=== PATIENT | female | born 1995 | race Hispanic/Latino ===

== ENCOUNTER 2017-02-27 22:49 | Emergency (ER) | payer OTHER ==
[2017-02-27 22:49] VITALS: BMI 23.0
[2017-02-27 22:57] VITALS: BP 127/86; PULSE 60; TEMP 98.4; O2SAT 100
[2017-02-27 23:29] LABS: RBC URINE 21 /hpf (0-3); TRANSITIONAL EPITHIAL 5 /hpf (0-3); URINE BACTERIA MANY (<OCC); URINE BILIRUBIN NEGATIVE (NEGATIVE); URINE COLOR Yellow (YELLOW); URINE GLUCOSE (UA) NORMAL (Normal); URINE KETONE TRACE mg/dL (NEGATIVE); URINE LEUKOCYTE ESTERASE 3+ Leu/uL (Negative); URINE PROTEIN 1+ mg/dL (NEGATIVE); URINE UROBILINOGEN NORMAL mg/dL (0.2-1.0); WBC URINE 241 /hpf (0-5)
[2017-02-27 23:30] LABS: URINE BLOOD 2+ (NEGATIVE)
--- NOTE | 2017-02-28 00:02 | C.PDOC ---
History Of Present Illness 22 year old patient presents to the ED complaining of urinary hesitancy, dysuria and hematuria since yesterday. Patient has a history of UTIs. Patient denies any fever, chills, nausea, vomiting, abdominal pain, or back pain. Time Seen by Provider: 02/27/17 23:07 Chief Complaint (Nursing): Female Genitourinary History Per: Patient History/Exam Limitations: no limitations Onset/Duration Of Symptoms: Days (yesterday) Current Symptoms Are (Timing): Still Present Severity: Mild Pain Scale Rating Of: 3 Quality Of Discomfort: Unable To Describe Associated Symptoms: Urinary Symptoms Alleviating Factors: None Recent travel outside of the [place]: No Additional History Per: Patient Abnormal Vaginal Bleeding: No Past Medical History Reviewed: Historical Data, Nursing Documentation, Vital Signs Vital Signs: Last Vital Signs Temp 98.4 F 02/27/17 22:55 Pulse 60 02/27/17 22:55 Resp 20 02/28/17 00:07 BP 127/86 02/27/17 22:55 Pulse Ox 100 02/28/17 00:02 - Medical History PMH: Anxiety, Asthma, Migraine Family History: States: Unknown Family Hx - Social History Hx Tobacco Use: No Hx Alcohol Use: Yes Hx Substance Use: No - Immunization History Hx Tetanus Toxoid Vaccination: No Hx Influenza Vaccination: No Hx Pneumococcal Vaccination: No Review Of Systems Except As Marked, All Systems Reviewed And Found Negative. Constitutional: Negative for: Fever, Chills Gastrointestinal: Negative for: Nausea, Vomiting, Abdominal Pain Genitourinary: Positive for: Dysuria, Hematuria, Other (urinary hesitancy) Musculoskeletal: Negative for: Back Pain Physical Exam - Physical Exam Appears: Non-toxic, No Acute Distress Skin: Warm, Dry Head: Atraumatic, Normacephalic Eye(s): bilateral: EOMI Oral Mucosa: Moist Neck: Normal ROM, Supple Chest: Symmetrical Cardiovascular: Rhythm Regular Respiratory: Normal Breath Sounds, No Rales, No Rhonchi, No Wheezing Gastrointestinal/Abdominal: Soft, No Tenderness, No Guarding, No Rebound Back: Normal Inspection, No CVA Tenderness Extremity: Normal ROM Neurological/Psych: Oriented x3 Gait: Steady ED Course And Treatment O2 Sat by Pulse Oximetry: 100 (room air) Pulse Ox Interpretation: Normal Progress Note: Plan: Macrobid, Pyridium, Urine culture, Urinalysis. Upon reassessment, patient is resting comfortably, abdomen remains soft, and patient is tolerating PO. Patient feels comfortable going home. Patient will be discharged home. Follow up with PMD. Return if symptoms worsen. Disposition Counseled Patient/Family Regarding: Diagnosis, Need For Followup - Disposition Disposition: HOME/ ROUTINE Disposition Time: 23:59 Condition: STABLE Additional Instructions: PLease take meds as directed Follow up with PMD Return to ER if worse Prescriptions: Nitrofurantoin Macrocrystals [Macrobid] 1 cap PO BID #14 cap Phenazopyridine HCl [Pyridium] 100 mg PO TID #6 tab Instructions: Urinary Tract Infection in Women (ED) - Clinical Impression Clinical Impression: Urinary tract infection - PA / DIRECTOR ELECTRONICS / Resident Statement MD/DO has reviewed & agrees with the documentation as recorded. - Scribe Statement The provider has reviewed the documentation as recorded by the Scribe Monica Burton All medical record entries made by the Scribe were at my direction and personally dictated by me. I have reviewed the chart and agree that the record accurately reflects my personal performance of the history, physical exam, medical decision making, and the department course for this patient. I have also personally directed, reviewed, and agree with the discharge instructions and disposition.
[2017-02-28 00:08] VITALS: RESP 20
== END 2017-02-28 00:07 | disposition home or self-care (01) ==
LOC: C.ER 22:49
DX: N39.0 Urinary tract infection, site not specified (principal); R31.9 Hematuria, unspecified

== ENCOUNTER 2017-08-17 13:38 | Emergency (ER) | payer OTHER ==
[2017-08-17 13:38] VITALS: BMI 23.0
[2017-08-17 13:43] VITALS: RESP 18
--- NOTE | 2017-08-17 14:18 | C.PDOC ---
History Of Present Illness 22 y/o female c/o urinary urgency frequency and dysuria for about 4-5 days, not better after taking otc pyridium. No nausea,vomiting, fever, chills or back pain. pt reports frequent uti, no hx dm. pt has plans to go for resource management specialist visit in near future. Time Seen by Provider: 08/17/17 13:46 Chief Complaint (Nursing): Female Genitourinary History Per: Patient Onset/Duration Of Symptoms: Days (5) Current Symptoms Are (Timing): Still Present Severity: Mild Quality Of Discomfort: "Pain" Associated Symptoms: denies: Fever, Chills, Nausea, Vomiting, Back Pain Recent travel outside of the [place]: No Additional History Per: Patient Past Medical History Reviewed: Historical Data, Nursing Documentation, Vital Signs Vital Signs: Last Vital Signs Temp 98.5 F 08/17/17 15:12 Pulse 74 08/17/17 15:12 Resp 18 08/17/17 15:12 BP 116/70 08/17/17 15:12 Pulse Ox 96 08/17/17 21:57 - Medical History PMH: Anxiety, Asthma, Migraine Denies: Chronic Kidney Disease Family History: States: Unknown Family Hx - Social History Hx Tobacco Use: No Hx Alcohol Use: No Hx Substance Use: No - Immunization History Hx Tetanus Toxoid Vaccination: No Hx Influenza Vaccination: No Hx Pneumococcal Vaccination: No Review Of Systems Constitutional: Negative for: Fever, Chills Gastrointestinal: Negative for: Nausea, Vomiting, Abdominal Pain Genitourinary: Positive for: Dysuria, Frequency, Other (URinary urgency) Musculoskeletal: Negative for: Back Pain Skin: Negative for: Rash Neurological: Negative for: Weakness, Numbness Physical Exam - Physical Exam Appears: Non-toxic, No Acute Distress Skin: Warm, Dry Head: Atraumatic, Normacephalic Oral Mucosa: Moist Chest: Symmetrical, No Tenderness Cardiovascular: Rhythm Regular, No Murmur Respiratory: Normal Breath Sounds, No Rales, No Rhonchi, No Wheezing Gastrointestinal/Abdominal: Bowel Sounds, Soft, No Tenderness, No Guarding, No Rebound Back: No CVA Tenderness Neurological/Psych: Oriented x3, Normal Speech, Normal Cognition ED Course And Treatment O2 Sat by Pulse Oximetry: 96 (RA) Pulse Ox Interpretation: Normal Medical Decision Making Medical Decision Making: ua upreg and uc sent Disposition Counseled Patient/Family Regarding: Studies Performed, Diagnosis, Need For Followup, Rx Given - Disposition Referrals: [facility] [Outside] Disposition: HOME/ ROUTINE Disposition Time: 15:12 Condition: STABLE Additional Instructions: Drink increased fluids- water and craberry juice best. Follow up with manager programming and/or in medical clinic. Complete entire antibiotic prescription. Prescriptions: Ciprofloxacin HCl [Cipro] 500 mg PO BID #10 tablet Instructions: Urinary Tract Infection in Women (ED) Forms: General Discharge Instructions, [facility] (Bhutanese), School Excuse, Work Excuse - Clinical Impression Clinical Impression: Urinary tract infection - Scribe Statement The provider has reviewed the documentation as recorded by the Scribe Ramy bentley All medical record entries made by the Scribe were at my direction and personally dictated by me. I have reviewed the chart and agree that the record accurately reflects my personal performance of the history, physical exam, medical decision making, and the department course for this patient. I have also personally directed, reviewed, and agree with the discharge instructions and disposition.
[2017-08-17 14:35] LABS: RBC URINE 6 /hpf (0-3); URINE BACTERIA MOD (<OCC); URINE BILIRUBIN NEGATIVE (NEGATIVE); URINE BLOOD NEGATIVE (NEGATIVE); URINE COLOR Yellow (YELLOW); URINE GLUCOSE (UA) NORMAL (Normal); URINE KETONE NEGATIVE (NEGATIVE); URINE LEUKOCYTE ESTERASE 3+ Leu/uL (Negative); URINE PROTEIN NEGATIVE (NEGATIVE); URINE UROBILINOGEN NORMAL mg/dL (0.2-1.0); WBC URINE 152 /hpf (0-5)
[2017-08-17 15:12] VITALS: BP 116/70; PULSE 74; TEMP 98.5
[2017-08-17 15:14] VITALS: O2SAT 96
== END 2017-08-17 15:21 | disposition home or self-care (01) ==
LOC: C.ER 13:38
DX: N39.0 Urinary tract infection, site not specified (principal)

== ENCOUNTER 2017-12-25 00:03 | Emergency (ER) | payer OTHER ==
[2017-12-25 00:03] VITALS: BMI 23.0
[2017-12-25 00:36] LABS: SQUAMOUS EPITHIAL 10 /hpf (0-5); URINE BACTERIA MANY (<OCC); URINE BILIRUBIN NEGATIVE (NEGATIVE); URINE BLOOD NEGATIVE (NEGATIVE); URINE CLARITY Hazy (Clear); URINE COLOR Yellow (YELLOW); URINE GLUCOSE (UA) NORMAL (Normal); URINE LEUKOCYTE ESTERASE 2+ Leu/uL (Negative); URINE PROTEIN 1+ mg/dL (NEGATIVE); URINE UROBILINOGEN NORMAL mg/dL (0.2-1.0)
--- NOTE | 2017-12-25 00:46 | C.PDOC ---
History Of Present Illness Pt presents yo ER with c/o of dysuria, urinary hesitancy and frequency x 2 days. Pt has past h/o of UTI and feels the same. Pt denies fever, vomiting, abdominal pain or back pain Time Seen by Provider: 12/25/17 00:29 Chief Complaint (Nursing): Female Genitourinary History Per: Patient History/Exam Limitations: no limitations Severity: Moderate Associated Symptoms: Urinary Symptoms. denies: Fever, Vomiting, Back Pain Past Medical History Vital Signs: Last Vital Signs Temp 97.8 F 12/25/17 00:14 Pulse 72 12/25/17 00:14 Resp 18 12/25/17 00:14 BP 117/83 12/25/17 00:14 Pulse Ox 99 12/25/17 00:45 - Medical History PMH: Anxiety, Asthma, Migraine Denies: Chronic Kidney Disease Family History: States: Unknown Family Hx - Social History Hx Tobacco Use: No Hx Alcohol Use: No Hx Substance Use: No - Immunization History Hx Tetanus Toxoid Vaccination: No Hx Influenza Vaccination: No Hx Pneumococcal Vaccination: No Review Of Systems Constitutional: Negative for: Fever Gastrointestinal: Negative for: Nausea, Vomiting, Abdominal Pain Genitourinary: Positive for: Dysuria, Frequency. Negative for: Incontinence, Hematuria, Vaginal Discharge Musculoskeletal: Negative for: Back Pain Physical Exam - Physical Exam Appears: Well, Non-toxic, No Acute Distress Eye(s): bilateral: Normal Inspection, PERRL, EOMI Gastrointestinal/Abdominal: Normal Exam, Soft, No Tenderness, No Distention Back: Normal Inspection, No CVA Tenderness Neurological/Psych: Oriented x3 ED Course And Treatment - Laboratory Results Urine POC: Negative O2 Sat by Pulse Oximetry: 99 Pulse Ox Interpretation: Normal Progress Note: Pt in no acute distress, UA indicates UTI. Pt will be d/c home with RX for UTI. Return precautions discussed and pt understands and agreed with plan. Urine cx sent Reassessment Condition: Improved Disposition - Disposition Referrals: Kalie Gardner MD [Primary Care Provider] - Disposition: HOME/ ROUTINE Disposition Time: 00:53 Condition: STABLE Additional Instructions: Increase fluids Take all meds prescribed Return to ER if worse Prescriptions: Nitrofurantoin Macrocrystals [Macrobid] 1 cap PO BID #14 cap Phenazopyridine HCl [Pyridium] 100 mg PO TID #4 tab Instructions: Urinary Tract Infections in Adults Forms: [facility] (Hungarian) - Clinical Impression Clinical Impression: Urinary tract infection
[2017-12-25 01:24] VITALS: BP 120/71; PULSE 81; RESP 20; TEMP 98
[2017-12-25 04:05] VITALS: O2SAT 99
== END 2017-12-25 01:23 | disposition home or self-care (01) ==
LOC: SUPCPDRO 00:03 → C.ER 00:03
DX: N39.0 Urinary tract infection, site not specified (principal)

== ENCOUNTER 2018-01-26 16:33 | Emergency (ER) | payer OTHER ==
[2018-01-26 16:51] VITALS: BMI 27.4
[2018-01-26 16:54] VITALS: TEMP 98
[2018-01-26 17:50] LABS: SQUAMOUS EPITHIAL 6 /hpf (0-5); URINE BACTERIA RARE (<OCC); URINE BILIRUBIN NEGATIVE (NEGATIVE); URINE BLOOD NEGATIVE (NEGATIVE); URINE CLARITY Hazy (Clear); URINE COLOR Amber (YELLOW); URINE GLUCOSE (UA) NORMAL (Normal); URINE LEUKOCYTE ESTERASE 1+ Leu/uL (Negative); URINE PROTEIN 1+ mg/dL (NEGATIVE)
--- NOTE | 2018-01-26 18:58 | C.PDOC ---
History Of Present Illness 22 year old female presents to the ED for evaluation of urinary frequency and urgency which began last night. Patient has history of frequency UTIs and received her most recent treatment was one month ago. Patient states she was instructed to take 7-day course of Macrobid, but patient states she only took it for 5 days. Patient states she took one tablet of leftover Macrobid and Pyridium with some relief last night.. She presents to the ED for further evaluation and denies fever, chills, abdominal pain. Patient admits to recent sexual activity. Time Seen by Provider: 01/26/18 17:21 Chief Complaint (Nursing): Female Genitourinary History Per: Patient History/Exam Limitations: no limitations Onset/Duration Of Symptoms: Hrs Current Symptoms Are (Timing): Still Present Associated Symptoms: Urinary Symptoms (urinary frequency and urgency ). denies : Fever, Chills Additional History Per: Patient Past Medical History Reviewed: Historical Data, Nursing Documentation, Vital Signs Vital Signs: Last Vital Signs Temp 98 F 01/26/18 16:50 Pulse 71 01/26/18 19:17 Resp 16 01/26/18 19:17 BP 101/66 01/26/18 19:17 Pulse Ox 100 01/27/18 15:55 - Medical History PMH: Anxiety, Asthma, Migraine Denies: Chronic Kidney Disease Surgical History: No Surg Hx Family History: States: Unknown Family Hx - Social History Hx Tobacco Use: No Hx Alcohol Use: No Hx Substance Use: No - Immunization History Hx Tetanus Toxoid Vaccination: No Hx Influenza Vaccination: No Hx Pneumococcal Vaccination: No Review Of Systems Constitutional: Negative for: Fever, Chills Gastrointestinal: Negative for: Vomiting, Abdominal Pain Genitourinary: Positive for: Frequency, Other (urgency ). Negative for: Pelvic Pain Musculoskeletal: Negative for: Back Pain Physical Exam - Physical Exam Appears: Non-toxic, No Acute Distress Skin: Normal Color, Warm, Dry Head: Atraumatic, Normacephalic Eye(s): bilateral: Normal Inspection Oral Mucosa: Moist Neck: Supple Chest: Symmetrical, No Deformity, No Tenderness Cardiovascular: Rhythm Regular, No Murmur Respiratory: Normal Breath Sounds, No Rales, No Rhonchi, No Wheezing Gastrointestinal/Abdominal: Soft, No Tenderness, No Guarding, No Rebound Back: No CVA Tenderness Extremity: Normal ROM, Capillary Refill (less than 2 seconds ) Neurological/Psych: Oriented x3, Normal Speech, Normal Cognition ED Course And Treatment O2 Sat by Pulse Oximetry: 100 (on RA) Pulse Ox Interpretation: Normal Medical Decision Making Medical Decision Making: pt with frequent uti; seen 1 month ago, txed with macrobid. culture from reviewed, shows ecoli and group beta strep. ecoli sensitive to macrobid; gbs sensitive to pcn, will d/c with macrobid and amoxicillin. pt advised she needs to see gynecology and urology for frequent utis, and urged to urinate before and after intercourse. pt made aware of increasing antibiotic resistance seen in cultures and the importance of gu and chief librarian extension department follow up. Disposition Counseled Patient/Family Regarding: Studies Performed, Diagnosis, Need For Followup, Rx Given - Disposition Referrals: Noah Baez MD [Staff Provider] - Kaelyn Ibarra MD [Staff Provider] - Disposition: HOME/ ROUTINE Disposition Time: 19:06 Condition: GOOD Additional Instructions: Please drink increased water and cranberry juices. Take both antibiotics to completion. Please follow up with Dr Baez (urologist) or urologist of your own choice, and Dr Ibarra (chief librarian extension department) or chief librarian extension department of your own choice. Urinate before and after intercourse. Return to ER for any worse symptoms, fever, vomiting, back pain. . Tylenol or Motrin for pain if needed. Prescriptions: Amoxicillin 875 mg PO BID #20 tablet Nitrofurantoin Macrocrystals [Macrobid] 100 mg PO BID #14 cap Instructions: Urinary Tract Infection, Adult (DC), Acute Cystitis (DC) Forms: [facility] (Slovak), General Discharge Instructions - Clinical Impression Clinical Impression: Urinary tract infection - PA / EMAIL MARKETING INTERN / Resident Statement MD/DO has reviewed & agrees with the documentation as recorded. - Scribe Statement The provider has reviewed the documentation as recorded by the Scribe All medical record entries made by the Scribe were at my direction and personally dictated by me. I have reviewed the chart and agree that the record accurately reflects my personal performance of the history, physical exam, medical decision making, and the department course for this patient. I have also personally directed, reviewed, and agree with the discharge instructions and disposition.
[2018-01-26 19:18] VITALS: BP 101/66; PULSE 71; RESP 16
[2018-01-27 15:54] VITALS: O2SAT 100
== END 2018-01-26 19:18 | disposition home or self-care (01) ==
LOC: C.ER 16:33
DX: N39.0 Urinary tract infection, site not specified (principal)

== ENCOUNTER 2018-05-08 13:26 | Emergency (ER) | payer OTHER ==
[2018-05-08 13:26] VITALS: BMI 27.4
[2018-05-08] MEDS ORDERED: Sodium Chloride 0.9% 1,000 ML IV ONE (14:47)
[2018-05-08 15:22] LABS: BASO # 0.1 K/uL (0.0-0.2); BASO % 1.2 % (0.0-2.0); EOS # 0.1 K/uL (0.0-0.7); HEMOGLOBIN 12.4 g/dL (11.0-16.0); LYMPH # 2.3 K/uL (1.0-4.3); LYMPH % 21.5 % (20.0-40.0); MEAN CELL VOLUME 90.1 fL (81.0-99.0); MEAN CORPUSCULAR HEMOGLOBIN 32.1 pg (27.0-31.0); MEAN CORPUSCULAR HGB CONC 35.7 g/dL (33.0-37.0); MEAN PLATELET VOLUME 7.3 fL (7.2-11.7); MONO # 0.9 K/uL (0.0-0.8); MONO % 8.5 % (0.0-10.0); NEUT # 7.4 K/uL (1.8-7.0); NEUT % 67.8 % (50.0-75.0); RBC 3.85 Mil/uL (3.80-5.20); RED CELL DISTRIBUTION WIDTH 12.9 % (11.5-14.5); WHITE BLOOD COUNT 10.9 K/uL (4.8-10.8)
[2018-05-08 15:27] LABS: SQUAMOUS EPITHIAL 1 /hpf (0-5); URINE BILIRUBIN NEGATIVE (NEGATIVE); URINE BLOOD 3+ (NEGATIVE); URINE CLARITY Clear (Clear); URINE COLOR Yellow (YELLOW); URINE GLUCOSE (UA) NORMAL (Normal); URINE LEUKOCYTE ESTERASE 1+ Leu/uL (Negative); URINE PROTEIN NEGATIVE (NEGATIVE); URINE UROBILINOGEN NORMAL mg/dL (0.2-1.0)
[2018-05-08 15:45] LABS: ALB/GLOB RATIO 1.6 (1.0-2.1); ALBUMIN 4.6 g/dL (3.5-5.0); ALT/SGPT 29 U/L (9-52); AST/SGOT 22 U/L (14-36); BLOOD UREA NITROGEN 11 mg/dL (7-17); CALCIUM 9.5 mg/dl (8.6-10.4); GFR AFRICAN-AMERICAN > 60; GFR NON-AFRICAN AMERICAN > 60
--- NOTE | 2018-05-08 17:15 | US ---
Date of service: 05/08/2018 PROCEDURE: OB Pelvic Ultrasound HISTORY: vag bleeding LMP: 03/16/2018 Serum beta HCG 2903 COMPARISON: None available. FINDINGS: UTERUS: Gestational sac: Single intrauterine gestation. Cystic structure measuring, out of range Uterus measures 7.1 x 4.7 x 3.7 cm. Normal in size and appearance. CERVIX: Measures 3.1 cm. Long and closed. No cervical abnormality seen. RIGHT OVARY: Measures 3.7 x 2.9 x 2.3 cm. No mass lesion. Normal flow. LEFT OVARY: Measures 2.8 x 1.5 x 2.2 cm. No solid mass. Normal flow. FREE FLUID: None. OTHER FINDINGS: None. IMPRESSION: Small intrauterine cystic structure which likely represents a gestational sac, but is currently out of range. Findings may represent early normal/ abnormal with ectopic not excluded. Close clinical follow-up with serial pelvic sonography and serum beta HCG levels is recommended.
[2018-05-08 18:08] VITALS: BP 124/77; PULSE 96; RESP 18; TEMP 99; O2SAT 100
--- NOTE | 2018-05-08 18:28 | C.PDOC ---
History Of Present Illness 23 y/oF presents to the ED for evaluation of light vaginal spotting which began 3 days ago. Patient was seen at the clinic during the onset of her symptoms and was told her symptoms are not remarkable. Over the past 48 hours, patient reports her spotting has increased and her bleeding became heavier today. Patient is also c/o a cramping abdominla pain. She does not take any medications and denies past surgical history or history of allergies. Patient takes vitamins. She denies alcohol/drug use. Patient's LMP was 03/16/18. . Time Seen by Provider: 05/08/18 14:07 Chief Complaint (Nursing): Female Genitourinary History Per: Patient History/Exam Limitations: no limitations Onset/Duration Of Symptoms: Days (3) Current Symptoms Are (Timing): Still Present Quality Of Discomfort: Cramping Additional History Per: Patient Abnormal Vaginal Bleeding: Yes Last Menstral Period: 03/16/18 Past Medical History Reviewed: Historical Data, Nursing Documentation, Vital Signs Vital Signs: Last Vital Signs Temp 99.0 F 05/08/18 18:07 Pulse 96 H 05/08/18 18:07 Resp 18 05/08/18 18:07 BP 124/77 05/08/18 18:07 Pulse Ox 100 05/08/18 21:19 - Medical History PMH: Anxiety, Asthma, Migraine Denies: Chronic Kidney Disease Surgical History: No Surg Hx Family History: States: Unknown Family Hx - Social History Hx Tobacco Use: No Hx Alcohol Use: No Hx Substance Use: No - Immunization History Hx Tetanus Toxoid Vaccination: No Hx Influenza Vaccination: No Hx Pneumococcal Vaccination: No Review Of Systems Constitutional: Negative for: Fever, Chills, Sweats Eyes: Negative for: Pain, Vision Change, Conjunctivae Inflammation ENT: Negative for: Ear Pain, Ear Discharge, Nose Pain, Nose Discharge Cardiovascular: Negative for: Chest Pain, Palpitations, Orthopnea, Paroxysmal Noc. Dyspnea Respiratory: Negative for: Cough, Shortness of Breath, Hemoptysis, SOB with Excertion, Pleuritic Pain Gastrointestinal: Positive for: Nausea, Abdominal Pain. Negative for: Vomiting , Constipation, Melena Genitourinary: Positive for: Vaginal Bleeding. Negative for: Dysuria, Frequency , Incontinence Musculoskeletal: Negative for: Neck Pain, Shoulder Pain, Arm Pain Skin: Negative for: Rash Neurological: Negative for: Weakness, Numbness, Incoordination Physical Exam - Physical Exam Appears: Non-toxic, No Acute Distress Skin: Normal Color, Warm, Dry Head: Atraumatic, Normacephalic Eye(s): bilateral: Normal Inspection, PERRL, EOMI Ear(s): Bilateral: Normal Oral Mucosa: Moist Tongue: Normal Appearing Lips: Normal Appearing Teeth: Normal Dentition Gingiva: Normal Appearing Throat: Normal Neck: Normal, Supple Chest: Symmetrical, No Deformity, No Tenderness Cardiovascular: Rhythm Regular Respiratory: Normal Breath Sounds, No Rales, No Rhonchi, No Wheezing Gastrointestinal/Abdominal: Soft, No Tenderness, No Guarding, No Rebound Back: Normal Inspection Pelvic: Other (deferred) Extremity: Normal ROM, Capillary Refill (less than 2 seconds ) Extremity: Bilateral: No Pedal Edema, Normal Color And Temperature, Normal ROM Neurological/Psych: Oriented x3, Normal Speech, Normal Cognition ED Course And Treatment - Laboratory Results Result Diagrams: 05/08/18 15:16 05/08/18 15:16 O2 Sat by Pulse Oximetry: 100 (on RA) Pulse Ox Interpretation: Normal - CT Scan/US ultrasound Other Rad Studies (CT/US): Read By Radiologist, Radiology Report Reviewed CT/US Interpretation: 05/08/2018. PROCEDURE: OB Pelvic Ultrasound. HISTORY: vag bleeding. LMP: 03/16/2018. Serum beta HCG 2903. COMPARISON: None available. FINDINGS: UTERUS: Gestational sac: Single intrauterine gestation. Cystic structure measuring, out of range. Uterus measures 7.1 x 4.7 x 3.7 cm. Normal in size and appearance. CERVIX: Measures 3.1 cm. Long and closed. No cervical abnormality seen. RIGHT OVARY: Measures 3.7 x 2.9 x 2.3 cm. No mass lesion. Normal flow. LEFT OVARY: Measures 2.8 x 1.5 x 2.2 cm. No solid mass. Normal flow. FREE FLUID: None. OTHER FINDINGS: None. IMPRESSION: Small intrauterine cystic structure which likely represents a gestational sac, but is currently out of range. Findings may represent early normal/ abnormal with ectopic not excluded. Close clinical follow-up with serial pelvic sonography and serum beta HCG levels is recommended. Medical Decision Making Medical Decision Making: Progress: Urinalysis, urine , ob ultrasound , type and screen ordered and reviewed. IV Fluids given for hydration. labs results: * white count: 10 * hemoglobin: 12 * CBC negative * urine negative * Beta 29.03 * blood type is A+ ultrasound shows small uterine cyst, could be gestational sac. could be early abnormal or ectopic. pt counseled to return in 48 hours for repeat beta hcg and repeat pelvic us. Disposition Counseled Patient/Family Regarding: Diagnosis, Need For Followup - Disposition Disposition: HOME/ ROUTINE Disposition Time: 19:01 Condition: GOOD Additional Instructions: return in 2 days for repeat beta and ultrasound Forms: [facility] ([place] Citizen) - Clinical Impression Clinical Impression: Abdominal pain, Vaginal bleeding affecting early
== END 2018-05-08 19:05 | disposition home or self-care (01) ==
LOC: C.ER 13:26
DX: O20.9 Hemorrhage in early pregnancy, unspecified (principal); Z3A.00 Weeks of gestation of pregnancy not specified; R10.9 Unspecified abdominal pain
CPT/HCPCS: 76805; 76817; 80053; 81001; 84702; 85025; 86850; 86900; 96360; 99284; J7030

== ENCOUNTER 2018-05-09 20:26 | Emergency (ER) | payer OTHER ==
[2018-05-09 20:27] VITALS: BMI 27.4
[2018-05-09 21:27] LABS: BASO % 0.5 % (0.0-2.0); EOS # 0.2 K/uL (0.0-0.7); EOS % 1.7 % (0.0-4.0); HEMOGLOBIN 11.9 g/dL (11.0-16.0); LYMPH # 2.9 K/uL (1.0-4.3); LYMPH % 27.4 % (20.0-40.0); MEAN CELL VOLUME 90.4 fL (81.0-99.0); MEAN CORPUSCULAR HEMOGLOBIN 31.9 pg (27.0-31.0); MEAN CORPUSCULAR HGB CONC 35.3 g/dL (33.0-37.0); MEAN PLATELET VOLUME 7.8 fL (7.2-11.7); MONO # 0.8 K/uL (0.0-0.8); MONO % 8.1 % (0.0-10.0); NEUT # 6.5 K/uL (1.8-7.0); NEUT % 62.3 % (50.0-75.0); RBC 3.73 Mil/uL (3.80-5.20); RED CELL DISTRIBUTION WIDTH 12.8 % (11.5-14.5); WHITE BLOOD COUNT 10.4 K/uL (4.8-10.8)
--- NOTE | 2018-05-09 21:46 | C.PDOC ---
History Of Present Illness 23yo female, , seen in this ER last night for abdominal discomfort and vaignal bleeding, comes to ER for evaluation of similar complaints. Patient had labs indicating serum HCG of 2900 and an US done yesterday with ? gestational sac, no pole or yolk sac was noted. Patient was sent home with instructions about a threatened . She reports today the pain and bleeding has increased and she has also passed some clots. Otherwise, denies any hematuria, vomiting, and offers no additional medical complaints. Time Seen by Provider: 05/09/18 20:53 Chief Complaint (Nursing): Abdominal Pain History Per: Patient History/Exam Limitations: no limitations Onset/Duration Of Symptoms: Days Current Symptoms Are (Timing): Still Present Location Of Pain/Discomfort: Suprapubic Abnormal Vaginal Bleeding: Yes : 1 Para: 0 Miscarriage: 0 Past Medical History Reviewed: Historical Data, Nursing Documentation, Vital Signs Vital Signs: Last Vital Signs Temp 98.9 F 05/09/18 20:38 Pulse 83 05/09/18 20:38 Resp 16 05/09/18 20:38 BP 114/75 05/09/18 20:38 Pulse Ox 97 05/09/18 23:44 - Medical History PMH: Anxiety, Asthma, Migraine Denies: Chronic Kidney Disease Surgical History: No Surg Hx Family History: States: No Known Family Hx - Social History Hx Tobacco Use: No Hx Alcohol Use: Yes Hx Substance Use: No - Immunization History Hx Tetanus Toxoid Vaccination: No Hx Influenza Vaccination: No Hx Pneumococcal Vaccination: No Review Of Systems Constitutional: Negative for: Fever Gastrointestinal: Positive for: Abdominal Pain (suprapubic). Negative for: Vomiting Genitourinary: Positive for: Vaginal Bleeding. Negative for: Hematuria Physical Exam - Physical Exam Appears: Non-toxic, No Acute Distress Skin: Normal Color, Warm, Dry Head: Normacephalic Eye(s): bilateral: Normal Inspection Oral Mucosa: Moist Neck: Supple Chest: Symmetrical Cardiovascular: Rhythm Regular Respiratory: Normal Breath Sounds Gastrointestinal/Abdominal: Soft, Tenderness (suprapubic), No Guarding, No Rebound Pelvic: Normal External Exam, Vaginal Bleeding (small dark blood in vaginal vault), No Cervical Motion Tenderness, No Cervix Open, No Adnexal Tenderness Extremity: Normal ROM Neurological/Psych: Oriented x3 ED Course And Treatment - Laboratory Results Result Diagrams: 05/09/18 21:23 Lab Interpretation: Abnormal (HCG 1891, decreased from yesterday) O2 Sat by Pulse Oximetry: 97 (RA) Pulse Ox Interpretation: Normal - CT Scan/US Pelvic US Other Rad Studies (CT/US): Read By Radiologist, Radiology Report Reviewed CT/US Interpretation: EXAM: US Pelvis, Transvaginal. CLINICAL HISTORY: 23 years old, female; Signs and symptoms; Other: Vb; Additional info: with vaginal bleeding. TECHNIQUE: Real-time transvaginal pelvic ultrasound ( complete) with image documentation. Transvaginal. imaging was used for better evaluation of the endometrium and adnexa. COMPARISON: US - OB TRANSVAGINAL 2018-05-08 16:23. FINDINGS: Uterus/cervix: No intrauterine gestational sac. Heterogenous endometrial stripe thickness 15 mm. No myometrial mass. Uterus measures 8.2 cm x 4.3 cm x 5 cm. Right ovary: Unremarkable. No mass. Normal blood flow. 3.2 cm x 2.5 cm x 3.2 cm. Left ovary : Unremarkable. No mass. Normal blood flow. 2 x 2 cm x 1.7 cm x 2.6 cm. Free fluid: No free fluid. A gestational sac was present on prior examination but is not seen on current examination. IMPRESSION: 1. Negative for intrauterine gestational sac. 2. Prominent heterogenous endometrial tissues. 3. Negative ovaries. 4. Negative uterus and cervix. Thank you for allowing us to participate in the care of your patient. Dictated and Authenticated by: Jaren Townsend MD. 05/09/2018 11:36 PM Eastern Time ([place] & [place]) Progress Note: CBC, Beta-HCG and US Pelvis ordered. Reevaluation Time: 23:51 Reassessment Condition: Improved Disposition - Disposition Referrals: [facility] [Outside] Disposition: HOME/ ROUTINE Disposition Time: 23:51 Condition: IMPROVED Instructions: Miscarriage (DC) Forms: [employer] (Kiswahili) - Clinical Impression Clinical Impression: Spontaneous - Scribe Statement The provider has reviewed the documentation as recorded by the Merna Geiger Provider Attestation: All medical record entries made by the Ettaibgeronimo were at my direction and personally dictated by me. I have reviewed the chart and agree that the record accurately reflects my personal performance of the history, physical exam, medical decision making, and the department course for this patient. I have also personally directed, reviewed, and agree with the discharge instructions and disposition.
[2018-05-10 00:04] VITALS: BP 113/72; PULSE 74; RESP 18; TEMP 98.4; O2SAT 100
--- NOTE | 2018-05-10 10:12 | US ---
Date of service: 05/09/2018 HISTORY: with vaginal bleeding COMPARISON: 05/08/2018. TECHNIQUE: Transvaginal pelvic ultrasound was performed. FINDINGS: UTERUS: Measures 8.2 x 4.4 x 5.0 cm. Anteverted, normal in size and appearance. No fibroid or other mass lesion seen. ENDOMETRIUM: Measures 15 mm in diameter. The central endometrial echo complex is heterogeneous without vascularity. No evidence of intrauterine gestational sac. CERVIX: No cervical abnormality identified. RIGHT OVARY: Measures 3.2 x 2.5 x 3.2 cm. No solid mass. Normal flow. LEFT OVARY: Measures 2.3 x 1.7 x 2.8 cm. No solid mass. Normal flow. FREE FLUID: No significant free fluid noted. OTHER FINDINGS: None. IMPRESSION: No evidence for intrauterine gestation. Heterogeneous central endometrial echo complex without evidence of retained products of conception. A preliminary report was provided by [employer].
== END 2018-05-10 00:05 | disposition home or self-care (01) ==
LOC: C.ER 20:26
DX: O03.9 Complete or unspecified spontaneous abortion without complication (principal)

== ENCOUNTER 2018-05-12 12:26 | Emergency (ER) | payer OTHER ==
[2018-05-12 12:26] VITALS: BMI 27.4
[2018-05-12 12:47] VITALS: BP 114/78; PULSE 78; RESP 18; TEMP 98.2; O2SAT 100
--- NOTE | 2018-05-12 13:18 | C.PDOC ---
History Of Present Illness 23 year old female presents to the ED for follow up. Patient was seen 2 days ago in the ED for pelvic pain and bleeding and was told she had an . Patient discussed with friend, who told her she needed a D&C. Patient notes mild pain with major improvement from 2 days ago. She denies any bleeding, fever , or vomiting. She also requests work note. Time Seen by Provider: 05/12/18 13:04 Chief Complaint (Nursing): Abdominal Pain History Per: Patient History/Exam Limitations: no limitations Onset/Duration Of Symptoms: Days Current Symptoms Are (Timing): Still Present Reports Recently: Seen In ED (2 days ago) Past Medical History Reviewed: Historical Data, Nursing Documentation, Vital Signs Vital Signs: Last Vital Signs Temp 98.2 F 05/12/18 12:44 Pulse 78 05/12/18 12:44 Resp 18 05/12/18 12:44 BP 114/78 05/12/18 12:44 Pulse Ox 100 05/12/18 16:18 - Medical History PMH: Anxiety, Asthma, Migraine Denies: Chronic Kidney Disease Other Surgeries: Hx of surgeries Family History: States: No Known Family Hx - Social History Hx Tobacco Use: No Hx Alcohol Use: Yes Hx Substance Use: No - Immunization History Hx Tetanus Toxoid Vaccination: No Hx Influenza Vaccination: No Hx Pneumococcal Vaccination: No Review Of Systems Constitutional: Negative for: Fever, Chills Gastrointestinal: Positive for: Abdominal Pain (Mild). Negative for: Nausea, Vomiting Physical Exam - Physical Exam Appears: Non-toxic, No Acute Distress Skin: Warm, Dry Head: Atraumatic, Normacephalic Eye(s): bilateral: Normal Inspection Nose: Normal Oral Mucosa: Moist Neck: Normal ROM, Supple Chest: Symmetrical Cardiovascular: Rhythm Regular, No Murmur Respiratory: Normal Breath Sounds, No Rales, No Rhonchi, No Wheezing Gastrointestinal/Abdominal: Soft, No Tenderness, No Guarding, No Rebound Extremity: Normal ROM Extremity: Bilateral: Atraumatic, Normal Color And Temperature, Normal ROM Neurological/Psych: Oriented x3, Normal Speech Gait: Steady ED Course And Treatment O2 Sat by Pulse Oximetry: 100 (RA) Pulse Ox Interpretation: Normal Medical Decision Making Medical Decision Making: Impression: Spontaneous , work note request Prior records reviewed, patient had US 2 days ago showing spontaneous , no POC. Patient assessed and examined. Patient has no fever, abdomen soft without guarding or rebound or peritoneal signs. Patient given work note. 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 Disposition Counseled Patient/Family Regarding: Diagnosis, Need For Followup - Disposition [facility] Disposition: HOME/ ROUTINE Disposition Time: 13:16 Condition: STABLE Additional Instructions: Take Aleve or Advil for any pain Follow up with your sleep scientist or clinic for further care Instructions: Miscarriage (DC) Forms: [employer] (Bermudian), School Excuse, Work Excuse - POA Present On Arrival: None - Clinical Impression Clinical Impression: Spontaneous , Encounter to obtain excuse from work - PA / [employer] / Resident Statement MD/DO has reviewed & agrees with the documentation as recorded. - Scribe Statement The provider has reviewed the documentation as recorded by the Scribe Peg Hagen All medical record entries made by the Ettaibgeronimo were at my direction and personally dictated by me. I have reviewed the chart and agree that the record accurately reflects my personal performance of the history, physical exam, medical decision making, and the department course for this patient. I have also personally directed, reviewed, and agree with the discharge instructions and disposition.
== END 2018-05-12 13:30 | disposition home or self-care (01) ==
LOC: C.ER 12:26
DX: O03.9 Complete or unspecified spontaneous abortion without complication (principal)

== ENCOUNTER 2018-05-17 21:27 | Emergency (ER) | payer OTHER ==
[2018-05-17 21:27] VITALS: BMI 27.4
[2018-05-17 21:39] VITALS: RESP 18
[2018-05-17] MEDS ORDERED: Sodium Chloride 0.9% 1,000 ML IV ONE (22:06)
--- NOTE | 2018-05-17 22:06 | C.PDOC ---
History Of Present Illness 23 year old female presents to the ED c/o dizziness, SOB and not feeling well that started today. Patient reports she recently had a miscarriage but not sure how far along the was. Patient was seen in the ED on 05/08,05/09 and 05/12. Last betta on 05/09 and prevous H&H was normal. Patient reports she stopped bleeding 2 days ago, bleeding was heavier than her normal period. Patient reports she was bleeding a week and half in total. Patient denies fever , chill, nausea, vomit, diarrhea, vaginal discharge, numbness, weakness. Time Seen by Provider: 05/17/18 21:56 Chief Complaint (Nursing): Dizziness/Lightheaded History Per: Patient History/Exam Limitations: no limitations Onset/Duration Of Symptoms: Hrs Current Symptoms Are (Timing): Still Present Associated Symptoms Preceding Syncopal Episode: No Predromal Symptoms (Sudden Onset) Seizure Or Post-ictal Symptoms: None Fall Associated With With Symptoms: No Recent travel outside of the [place]: No Additional History Per: Patient Past Medical History Reviewed: Historical Data, Nursing Documentation, Vital Signs Vital Signs: Last Vital Signs Temp 98.5 F 05/17/18 21:36 Pulse 66 05/17/18 21:36 Resp 18 05/17/18 21:36 BP 114/75 05/17/18 21:36 Pulse Ox 99 05/17/18 22:44 - Medical History PMH: Anxiety, Asthma, Migraine Denies: Chronic Kidney Disease Surgical History: No Surg Hx Family History: States: Unknown Family Hx - Social History Hx Tobacco Use: No Hx Alcohol Use: Yes Hx Substance Use: No - Immunization History Hx Tetanus Toxoid Vaccination: No Hx Influenza Vaccination: No Hx Pneumococcal Vaccination: No Review Of Systems Constitutional: Positive for: Malaise. Negative for: Fever, Chills Eyes: Negative for: Vision Change Cardiovascular: Negative for: Chest Pain Respiratory: Positive for: Shortness of Breath. Negative for: Cough Gastrointestinal: Negative for: Nausea, Vomiting, Abdominal Pain, Diarrhea Neurological: Positive for: Dizziness. Negative for: Weakness, Numbness, Headache Physical Exam - Physical Exam Appears: Non-toxic, No Acute Distress Skin: Warm, Dry, Pale Head: Atraumatic, Normacephalic Eye(s): bilateral: Normal Inspection, Conjunctiva Pale Oral Mucosa: Moist Neck: Normal ROM, Supple Chest: Symmetrical Cardiovascular: Rhythm Regular Respiratory: Normal Breath Sounds, No Rales, No Rhonchi, No Wheezing Gastrointestinal/Abdominal: Soft, No Tenderness, No Guarding, No Rebound Extremity: Normal ROM, No Tenderness, No Swelling Neurological/Psych: Oriented x3, Normal Speech Gait: Steady ED Course And Treatment - Laboratory Results Result Diagrams: 05/17/18 22:14 05/17/18 22:14 ECG: Interpreted By Me, Viewed By Me ECG Rhythm: Sinus Rhythm ECG Interpretation: Normal Rate From EC (BPM) O2 Sat by Pulse Oximetry: 99 (ON RA) Pulse Ox Interpretation: Normal Progress - Re-Evaluation Re-evaluation Note: 05/17/18 23:21 sp ivf DIZZY RESOLVED. VSS - Data Reviewed Data Reviewed: Lab, EKG, Old records Medical Decision Making Medical Decision Making: Impression: dizziness, not feeling well, SOB s/o miscarriage last week Plan: * Labs * EKG * IV fluids * UA Disposition Counseled Patient/Family Regarding: Studies Performed, Diagnosis, Need For Followup - Disposition Referrals: [facility] [Outside] [facility] [Outside] Disposition: HOME/ ROUTINE Disposition Time: 00:00 Condition: IMPROVED Instructions: Near Fainting (DC) Forms: [employer] (Australian), Work Excuse - Clinical Impression Clinical Impression: Dizziness, Near syncope - Scribe Statement The provider has reviewed the documentation as recorded by the Scribe Rocky Craig All medical record entries made by the Scribe were at my direction and personally dictated by me. I have reviewed the chart and agree that the record accurately reflects my personal performance of the history, physical exam, medical decision making, and the department course for this patient. I have also personally directed, reviewed, and agree with the discharge instructions and disposition.
[2018-05-17 22:26] LABS: BASO # 0.1 K/uL (0.0-0.2); BASO % 0.8 % (0.0-2.0); EOS # 0.3 K/uL (0.0-0.7); EOS % 3.2 % (0.0-4.0); LYMPH # 2.8 K/uL (1.0-4.3); LYMPH % 33.5 % (20.0-40.0); MEAN CELL VOLUME 91.6 fL (81.0-99.0); MEAN CORPUSCULAR HEMOGLOBIN 31.6 pg (27.0-31.0); MEAN CORPUSCULAR HGB CONC 34.5 g/dL (33.0-37.0); MONO # 0.7 K/uL (0.0-0.8); MONO % 7.7 % (0.0-10.0); NEUT # 4.7 K/uL (1.8-7.0); NEUT % 54.8 % (50.0-75.0); RBC 3.8 Mil/uL (3.80-5.20); RED CELL DISTRIBUTION WIDTH 12.6 % (11.5-14.5); WHITE BLOOD COUNT 8.5 K/uL (4.8-10.8)
[2018-05-17 22:38] LABS: BLOOD UREA NITROGEN 13 mg/dL (7-17); CALCIUM 9.7 mg/dl (8.6-10.4); GFR AFRICAN-AMERICAN > 60; GFR NON-AFRICAN AMERICAN > 60
[2018-05-17 22:39] LABS: SQUAMOUS EPITHIAL 2 /hpf (0-5); URINE BILIRUBIN NEGATIVE (NEGATIVE); URINE BLOOD NEGATIVE (NEGATIVE); URINE CLARITY Clear (Clear); URINE COLOR Straw (YELLOW); URINE GLUCOSE (UA) NORMAL (Normal); URINE LEUKOCYTE ESTERASE 2+ Leu/uL (Negative); URINE PROTEIN NEGATIVE (NEGATIVE); URINE UROBILINOGEN NORMAL mg/dL (0.2-1.0)
[2018-05-17] MEDS ORDERED: Sodium Chloride 0.9% 1,000 ML ONE (22:51)
[2018-05-17 23:41] VITALS: BP 102/64; PULSE 70; TEMP 98.2; O2SAT 100
--- NOTE | 2018-05-18 20:46 | CARD ---
APPROVED REPORT Date of service: 05/17/2018 EKG Measurement Heart [id number] [id number] <Conclusion> Normal sinus rhythm Normal ECG
== END 2018-05-17 23:42 | disposition home or self-care (01) ==
LOC: C.ER 21:27
DX: R42 Dizziness and giddiness (principal); R55 Syncope and collapse
CPT/HCPCS: 80048; 81001; 84702; 85025; 93005; 99285; J7030

== ENCOUNTER 2018-08-02 13:53 | Emergency (ER) | payer OTHER ==
[2018-08-02 14:01] VITALS: BMI 28.1
[2018-08-02 14:02] VITALS: BP 112/75; PULSE 79; TEMP 98.8; O2SAT 97
--- NOTE | 2018-08-02 14:26 | C.PDOC ---
History Of Present Illness Patient reports that she vomited once last night and once today. She was able to tolerate PO after vomiting today. 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 She has not started taking the abx yet. Otherwise no fever, diarrhea, abdominal pain, dyspnea, chest pain, dysuria. She is currently menstruating. Time Seen by Provider: 08/02/18 14:08 Chief Complaint (Nursing): GI Problem Past Medical History Vital Signs: Last Vital Signs Temp 98.8 F 08/02/18 14:01 Pulse 79 08/02/18 14:01 Resp 17 08/02/18 14:01 BP 112/75 08/02/18 14:01 Pulse Ox 97 08/02/18 14:01 - Medical History PMH: Anxiety, Asthma, Migraine Denies: Chronic Kidney Disease Family History: States: Unknown Family Hx - Social History Hx Tobacco Use: No Hx Alcohol Use: Yes Hx Substance Use: No - Immunization History Hx Tetanus Toxoid Vaccination: No Hx Influenza Vaccination: No Hx Pneumococcal Vaccination: No Review Of Systems Except As Marked, All Systems Reviewed And Found Negative. Constitutional: Negative for: Fever, Chills Cardiovascular: Negative for: Chest Pain Respiratory: Negative for: Cough Gastrointestinal: Positive for: Nausea, Vomiting. Negative for: Abdominal Pain, Diarrhea Genitourinary: Negative for: Dysuria Physical Exam - Physical Exam Appears: Well, Non-toxic, No Acute Distress Skin: Normal Color, Warm, Dry Cardiovascular: Rhythm Regular Respiratory: Normal Breath Sounds Gastrointestinal/Abdominal: Normal Exam Extremity: Normal ROM Neurological/Psych: Oriented x3, Normal Speech Gait: Steady ED Course And Treatment - Laboratory Results Urine POC: Negative O2 Sat by Pulse Oximetry: 97 Medical Decision Making Medical Decision Making: Patient states that she is able to tolerate PO despite vomiting twice since yesterday. She ate a Hot Pocket earlier today. Declines bloodwork or IVF, states that her work made her come to the ED. Patient is stable for discharge home. Rx written for zofran PO. Advised outpatient followup as needed. Disposition - Disposition Disposition: HOME/ ROUTINE Disposition Time: 14:22 Condition: GOOD Additional Instructions: DUSTIN SOTO, thank you for letting us take care of you today. Your provider was Noelle Olvera MD and you were treated for VOMITING/DIZZINESS. The emergency medical care you received today was directed at your acute symptoms. If you were prescribed any medication, please fill it and take as directed. It may take several days for your symptoms to resolve. Return to the Emergency Department if your symptoms worsen, do not improve, or if you have any other problems. Please contact your doctor or call one of the physicians/clinics you have been referred to that are listed on the Patient Visit Information form that is included in your discharge packet. Bring any paperwork you were given at discharge with you along with any medications you are taking to your follow up visit. Our treatment cannot replace ongoing medical care by a primary care provider outside of the emergency department. Thank you for allowing the [facility] team to be part of your care today. If you had an X-Ray or CT scan: A Radiologist will review the ED reading if any change in treatment is needed we will contact you. If you had a blood, urine, or wound culture: It will take several days for the results, if any change in treatment is needed we will contact you. If you had an STI test: It will take 48 hours for the results. Please call after 1 week if you have not heard back. Prescriptions: Ondansetron [Zofran] 4 mg PO Q8H #10 tab Instructions: Viral Gastroenteritis, Adult (DC) Forms: [employer] (Niuean), School Excuse, Work Excuse - Clinical Impression Clinical Impression: Gastroenteritis
[2018-08-02 14:39] VITALS: RESP 18
== END 2018-08-02 14:40 | disposition home or self-care (01) ==
LOC: C.ER 13:53
DX: K52.9 Noninfective gastroenteritis and colitis, unspecified (principal)

== ENCOUNTER 2018-08-28 18:16 | Emergency (ER) | payer OTHER ==
[2018-08-28 18:16] VITALS: BMI 28.1
--- NOTE | 2018-08-28 19:08 | C.PDOC ---
History Of Present Illness 23 y/o female with dizziness that began while at work today. Symptoms have since resolved. Patient refusing to wait in ED for evaluation. Asking for work note. She denies any chest pain, SOB, palpitations, nausea, vomiting, visual changes, fevers, or cough. Time Seen by Provider: 08/28/18 18:48 Chief Complaint (Nursing): Dizziness/Lightheaded History Per: Patient History/Exam Limitations: no limitations Onset/Duration Of Symptoms: Hrs Current Symptoms Are (Timing): Gone Past Medical History Reviewed: Historical Data, Nursing Documentation, Vital Signs Vital Signs: Last Vital Signs Temp 99 F 08/28/18 18:22 Pulse 74 08/28/18 18:22 Resp 20 08/28/18 18:22 BP 100/64 08/28/18 18:22 Pulse Ox 100 08/28/18 18:22 - Medical History PMH: Anxiety, Asthma, Migraine Denies: Chronic Kidney Disease Family History: States: Unknown Family Hx - Social History Hx Tobacco Use: No Hx Alcohol Use: Yes Hx Substance Use: No - Immunization History Hx Tetanus Toxoid Vaccination: No Hx Influenza Vaccination: No Hx Pneumococcal Vaccination: No Review Of Systems Constitutional: Negative for: Fever, Chills Eyes: Negative for: Vision Change Cardiovascular: Negative for: Chest Pain, Palpitations Respiratory: Negative for: Cough, Shortness of Breath Gastrointestinal: Negative for: Nausea, Vomiting Musculoskeletal: Negative for: Neck Pain, Back Pain Neurological: Positive for: Dizziness. Negative for: Weakness, Numbness, Headache Physical Exam - Physical Exam Appears: Well, Non-toxic, No Acute Distress Skin: Warm, Dry Head: Atraumatic, Normacephalic Eye(s): bilateral: Normal Inspection (no nystagmus), PERRL, EOMI Oral Mucosa: Moist Neck: Normal ROM, Supple Chest: Symmetrical Cardiovascular: Rhythm Regular, No Murmur Respiratory: Normal Breath Sounds, No Rales, No Rhonchi, No Wheezing Gastrointestinal/Abdominal: Soft, No Tenderness, No Distention Extremity: Bilateral: Atraumatic, Normal Color And Temperature, Normal ROM Neurological/Psych: Oriented x3, Normal Speech, Normal Cranial Nerves, Other (no focal deficits) Gait: Steady ED Course And Treatment O2 Sat by Pulse Oximetry: 100 (RA) Pulse Ox Interpretation: Normal Medical Decision Making Medical Decision Making: Impression: Dizziness Plan: Recommended work-up with labs and EKG, however patient refuses to wait for further testing. Risks of leaving AMA discussed in detail. AMA (treatment): The patient declines to have further medical evaluation and treatment and wishes to leave the Emergency Department. This action is against my medical advice to the patient, and with informed refusal. The patient was told that evaluation and treatment are necessary and a full explanation of the rationale was given. The risks of leaving were explained to the patient and include, but are not limited to, worsening of known or currently unknown conditions, permanent disability and from undiagnosed or untreated conditions The patient has the capacity to make this informed decision and understands the clinical situation and my explanation of the risks of leaving. The patient voluntarily accepts these risks, and a signed AMA form documenting our conversation was obtained. The patient was given the opportunity to ask questions and reconsider. The patient was encouraged to return to the Emergency Department at any time for further care. Disposition Counseled Patient/Family Regarding: Need For Followup - Disposition Disposition: AGAINST MEDICAL ADVICE Disposition Time: 19:07 Condition: UNKNOWN Instructions: Dizziness, Nonvertigo, (DC), Leaving Against Medical Advice Forms: [employer] (Filipino), School Excuse, Work Excuse - POA Present On Arrival: None - Clinical Impression Clinical Impression: Left against medical advice, Dizziness - Scribe Statement The provider has reviewed the documentation as recorded by the Merna Feng Provider Attestation: All medical record entries made by the Merna were at my direction and personally dictated by me. I have reviewed the chart and agree that the record accurately reflects my personal performance of the history, physical exam, medical decision making, and the department course for this patient. I have also personally directed, reviewed, and agree with the discharge instructions and disposition.
[2018-08-28 19:29] VITALS: BP 106/83; PULSE 76; RESP 18; TEMP 99.3
[2018-08-28 20:15] VITALS: O2SAT 100
== END 2018-08-28 19:29 | disposition left against medical advice (07) ==
LOC: C.ER 18:16
DX: R42 Dizziness and giddiness (principal)

== ENCOUNTER 2018-12-03 07:53 | Emergency (ER) | payer OTHER ==
[2018-12-03 07:53] VITALS: BMI 28.1
[2018-12-03 07:59] VITALS: RESP 18; TEMP 98.2
--- NOTE | 2018-12-03 08:33 | C.PDOC ---
History Of Present Illness 23 y/o female,w/PMhx of recurrent UTI's, presents to the ER complaining of dysuria which has been present since yesterday. Patient states that she has associated increased urination. Patient reports that her last UTI was in 2018 and she was treated with antibiotics. She notes that she is not currently taking OTC medications for her symptoms. Denies having fever,chills, nausea, vomiting, abdominal pain, pelvic pain, hematuria, vaginal bleeding, and vaginal discharge. Of note, patient's LMP was on 11/28/18. Time Seen by Provider: 12/03/18 08:13 Chief Complaint (Nursing): Female Genitourinary History Per: Patient History/Exam Limitations: no limitations Onset/Duration Of Symptoms: Days Current Symptoms Are (Timing): Still Present Severity: Moderate Past Medical History Reviewed: Historical Data, Nursing Documentation, Vital Signs Vital Signs: Last Vital Signs Temp 98.2 F 12/03/18 07:55 Pulse 71 12/03/18 07:55 Resp 18 12/03/18 07:55 BP 116/77 12/03/18 07:55 Pulse Ox 98 12/03/18 07:55 - Medical History PMH: Anxiety, Asthma, Migraine Denies: Chronic Kidney Disease Other Surgeries: Hx of surgeries Family History: States: No Known Family Hx - Social History Hx Tobacco Use: No Hx Alcohol Use: No Hx Substance Use: No - Immunization History Hx Tetanus Toxoid Vaccination: No Hx Influenza Vaccination: No Hx Pneumococcal Vaccination: No Review Of Systems Except As Marked, All Systems Reviewed And Found Negative. Constitutional: Negative for: Fever, Chills Gastrointestinal: Negative for: Nausea, Vomiting, Abdominal Pain Genitourinary: Positive for: Dysuria, Frequency. Negative for: Hematuria, Vaginal Discharge, Vaginal Bleeding, Pelvic Pain Physical Exam - Physical Exam Appears: Non-toxic, No Acute Distress Skin: Normal Color, Warm, Dry Head: Atraumatic, Normacephalic Eye(s): bilateral: Normal Inspection Nose: Normal Oral Mucosa: Moist Neck: Supple Chest: Symmetrical Cardiovascular: Rhythm Regular Respiratory: Normal Breath Sounds, No Rales, No Rhonchi, No Wheezing Gastrointestinal/Abdominal: Normal Exam, Soft, No Tenderness, No Guarding, No Rebound Back: No CVA Tenderness Neurological/Psych: Oriented x3, Normal Speech, Normal Cognition, Normal Sensation ED Course And Treatment O2 Sat by Pulse Oximetry: 98 (RA) Pulse Ox Interpretation: Normal Progress Note: UA, POC, and Urine Culture ordered. Patient treated with Pyridium PO and Motrin PO. UA positive and will treat with Macrobid and Pyridium. Patient notified of the results and verbalized understanding. She is stable for discharge Disposition Counseled Patient/Family Regarding: Studies Performed, Diagnosis, Need For Followup, Rx Given - Disposition Referrals: [facility] at [facility] [Outside] Disposition: HOME/ ROUTINE Disposition Time: 10:05 Condition: STABLE Additional Instructions: DUSTIN SOTO, thank you for letting us take care of you today. Your provider was Silvestre Delgadillo MD/Reilly Walls PA-C and you were treated for UTI. The emergency medical care you received today was directed at your acute symptoms. If you were prescribed any medication, please fill it and take as directed. It may take several days for your symptoms to resolve. Return to the Emergency Department if your symptoms worsen, do not improve, or if you have any other problems. Please contact your doctor or call one of the physicians/clinics you have been referred to that are listed on the Patient Visit Information form that is included in your discharge packet. Bring any paperwork you were given at discharge with you along with any medications you are taking to your follow up visit. Our treatment cannot replace ongoing medical care by a primary care provider outside of the emergency department. [facility] your care today. Prescriptions: Nitrofurantoin Macrocrystals [Macrobid] 100 mg PO BID #10 cap Phenazopyridine [Pyridium] 200 mg PO TID #6 tab Instructions: Urinary Tract Infection, Adult (DC) Forms: [employer] (Welsh), Work/School/Gym Excuse - Clinical Impression Clinical Impression: Urinary tract infection - PA / LIQUEFACTION PLANT OPERATOR / Resident Statement MD/DO has reviewed & agrees with the documentation as recorded. - Scribe Statement The provider has reviewed the documentation as recorded by the Merna Barrientos Provider Attestation All medical record entries made by the Merna were at my direction and personally dictated by me. I have reviewed the chart and agree that the record accurately reflects my personal performance of the history, physical exam, medical decision making, and the department course for this patient. I have also personally directed, reviewed, and agree with the discharge instructions and disposition.
[2018-12-03 09:35] LABS: SQUAMOUS EPITHIAL 4 /hpf (0-5); URINE BACTERIA OCC (<OCC)
[2018-12-03 09:38] LABS: URINE BILIRUBIN NEGATIVE (NEGATIVE); URINE BLOOD 2+ (NEGATIVE); URINE CLARITY Hazy (Clear); URINE COLOR Yellow (YELLOW); URINE GLUCOSE (UA) NORMAL (Normal); URINE LEUKOCYTE ESTERASE 3+ Leu/uL (Negative); URINE PROTEIN 1+ mg/dL (NEGATIVE); URINE UROBILINOGEN NORMAL mg/dL (0.2-1.0)
[2018-12-03 10:20] VITALS: BP 119/72; PULSE 69; O2SAT 97
== END 2018-12-03 10:20 | disposition home or self-care (01) ==
LOC: C.ER 07:53
DX: N39.0 Urinary tract infection, site not specified (principal)

== ENCOUNTER 2019-02-20 21:12 | Emergency (ER) | payer OTHER ==
[2019-02-20 21:12] VITALS: BMI 28.1
[2019-02-20 21:27] VITALS: BP 113/75; PULSE 73; TEMP 98.2; O2SAT 100
[2019-02-20 21:45] LABS: HCG,QUALITATIVE URINE NEGATIVE (NEGATIVE)
[2019-02-20 21:46] LABS: SQUAMOUS EPITHIAL 11 /hpf (0-5); URINE BACTERIA OCC (<OCC); URINE BILIRUBIN NEGATIVE (NEGATIVE); URINE BLOOD NEGATIVE (NEGATIVE); URINE CLARITY Hazy (Clear); URINE GLUCOSE (UA) NORMAL (Normal); URINE LEUKOCYTE ESTERASE TRACE Leu/uL (Negative); URINE PROTEIN NEGATIVE (NEGATIVE)
[2019-02-20 21:47] LABS: URINE COLOR YELLOW (YELLOW)
--- NOTE | 2019-02-20 22:14 | C.PDOC ---
History Of Present Illness 23 year old female with Hx of UTI, states she gets them several times a year last one 6 month ago, reports 2 days ago she felt she started having one when she began having urinary hesitancy and felt uncomfortable. Patient began taking some left over cefdinir she had from pervious UTI and has been taking it for 2 days. Denies other complaints. Time Seen by Provider: 02/20/19 21:40 Chief Complaint (Nursing): Female Genitourinary History Per: Patient History/Exam Limitations: no limitations Onset/Duration Of Symptoms: Days (2) Current Symptoms Are (Timing): Still Present Associated Symptoms: Other (Hesitancy) Recent travel outside of the [place]: No Past Medical History Reviewed: Historical Data, Nursing Documentation, Vital Signs Vital Signs: Last Vital Signs Temp 98.2 F 02/20/19 21:25 Pulse 73 02/20/19 21:25 Resp 18 02/20/19 21:25 BP 113/75 02/20/19 21:25 Pulse Ox 100 02/20/19 21:25 Primary Care Provider: Chema Holden - Medical History PMH: Anxiety, Asthma, Migraine Denies: Chronic Kidney Disease Family History: States: Unknown Family Hx - Social History Hx Tobacco Use: No Hx Alcohol Use: Yes Hx Substance Use: No - Immunization History Hx Tetanus Toxoid Vaccination: No Hx Influenza Vaccination: No Hx Pneumococcal Vaccination: No Review Of Systems Constitutional: Negative for: Fever, Chills Gastrointestinal: Negative for: Nausea, Vomiting, Abdominal Pain Genitourinary: Positive for: Other (Hesitancy). Negative for: Dysuria, Hematuria Musculoskeletal: Negative for: Back Pain Physical Exam - Physical Exam Appears: Non-toxic Skin: Normal Color, Warm, No Rash Head: Atraumatic, Normacephalic Gastrointestinal/Abdominal: Soft, No Tenderness Back: No CVA Tenderness Neurological/Psych: Oriented x3, Normal Speech ED Course And Treatment - Laboratory Results Lab Results: Urine Color Yellow (YELLOW) 02/20/19 21:35 Urine Clarity Hazy (Clear) 02/20/19 21:35 Urine pH 6.0 (5.0-8.0) 02/20/19 21:35 Ur Specific [place] 1.029 (1.003-1.030) 02/20/19 21:35 Urine Protein Negative mg/dL (NEGATIVE) 02/20/19 21:35 Urine Glucose (UA) Normal mg/dL (Normal) 02/20/19 21:35 Urine Ketones Trace mg/dL (NEGATIVE) 02/20/19 21:35 Urine Blood Negative (NEGATIVE) 02/20/19 21:35 Urine Nitrate Negative (NEGATIVE) 02/20/19 21:35 Urine Bilirubin Negative (NEGATIVE) 02/20/19 21:35 Urine Urobilinogen 2.0 mg/dL (0.2-1.0) H 02/20/19 21:35 Ur Leukocyte Esterase Trace Luiz/uL (Negative) 02/20/19 21:35 Urine WBC (Auto) 8 /hpf (0-5) H 02/20/19 21:35 Urine RBC (Auto) 2 /hpf (0-3) 02/20/19 21:35 Ur Squamous Epith Cells 11 /hpf (0-5) H 02/20/19 21:35 Urine Bacteria Occ (<OCC) H 02/20/19 21:35 Urine HCG, Qual Negative (NEGATIVE) 02/20/19 21:35 Urine HCG, Qual Negative (NEGATIVE) 02/20/19 21:35 O2 Sat by Pulse Oximetry: 100 (Room air) Pulse Ox Interpretation: Normal Medical Decision Making Medical Decision Making: Though UA showed no gross infection, patient has been on cefdinir for 2 days, advised to finished course and follow up with primary. Urine culture sent. Disposition - Disposition Disposition: HOME/ ROUTINE Disposition Time: 22:13 Condition: STABLE Additional Instructions: Continue cefdnir for the next 5 days. Return to the ER if symptoms persist or worsen. Instructions: Urinary Tract Infection, Adult (DC) Forms: [employer] (Luxembourgish), General Discharge Instructions - Clinical Impression Clinical Impression: Urinary tract infection - PA / BARREL RAISER HELPER / Resident Statement MD/DO has reviewed & agrees with the documentation as recorded. - Scribe Statement The provider has reviewed the documentation as recorded by the Scribgeronimo Shay All medical record entries made by the Scribe were at my direction and personally dictated by me. I have reviewed the chart and agree that the record accurately reflects my personal performance of the history, physical exam, medical decision making, and the department course for this patient. I have also personally directed, reviewed, and agree with the discharge instructions and disposition.
[2019-02-20 22:51] VITALS: RESP 20
== END 2019-02-20 22:50 | disposition home or self-care (01) ==
LOC: C.ER 21:12
DX: N39.0 Urinary tract infection, site not specified (principal)

== ENCOUNTER 2019-02-27 21:21 | Emergency (ER) | payer OTHER ==
[2019-02-27 21:22] VITALS: BMI 28.1
[2019-02-27 21:36] VITALS: BP 120/74
[2019-02-27 22:20] LABS: SQUAMOUS EPITHIAL 2 /hpf (0-5); URINE AMORPHOUS SEDIMENT OCC /ul (<OCC); URINE BACTERIA FEW (<OCC); URINE BILIRUBIN NEGATIVE (NEGATIVE); URINE BLOOD NEGATIVE (NEGATIVE); URINE CLARITY Hazy (Clear); URINE COLOR Yellow (YELLOW); URINE GLUCOSE (UA) NORMAL (Normal); URINE LEUKOCYTE ESTERASE 1+ Leu/uL (Negative); URINE PROTEIN NEGATIVE (NEGATIVE); URINE UROBILINOGEN NORMAL mg/dL (0.2-1.0)
[2019-02-27 22:24] LABS: HCG,QUALITATIVE URINE NEGATIVE (NEGATIVE)
--- NOTE | 2019-02-27 22:33 | C.PDOC ---
History Of Present Illness 24 year old female presents with dysuria and urinary hesitancy intermittently for the past week. Patient was seen on 02/20/19, discharged with antibiotics but states she lost the prescription. Patient has not taken any medications for it and reports she felt like she was improving but symptoms recurred 2 days ago. Denies fever, abdominal pain, nausea, vomiting or vaginal discharge or bleeding. Time Seen by Provider: 02/27/19 21:40 Chief Complaint (Nursing): Female Genitourinary History Per: Patient History/Exam Limitations: no limitations Onset/Duration Of Symptoms: Days Current Symptoms Are (Timing): Still Present Associated Symptoms: Urinary Symptoms. denies: Fever, Other (Abdominal pain) Alleviating Factors: None Recent travel outside of the [place]: No Abnormal Vaginal Bleeding: No Past Medical History Reviewed: Historical Data, Nursing Documentation, Vital Signs Vital Signs: Last Vital Signs Temp 97.9 F 02/27/19 21:33 Pulse 101 H 02/27/19 21:33 Resp 22 02/27/19 21:33 BP 120/74 02/27/19 21:33 Pulse Ox 98 02/27/19 21:33 Primary Care Provider: Non [facility] Provider, - Medical History PMH: Anxiety, Asthma, Migraine Denies: Chronic Kidney Disease Family History: States: Unknown Family Hx - Social History Hx Tobacco Use: No Hx Alcohol Use: Yes Hx Substance Use: No - Immunization History Hx Tetanus Toxoid Vaccination: No Hx Influenza Vaccination: No Hx Pneumococcal Vaccination: No Review Of Systems Constitutional: Negative for: Fever, Chills Gastrointestinal: Negative for: Abdominal Pain Genitourinary: Positive for: Dysuria, Other (Hesitancy) Skin: Negative for: Rash Physical Exam - Physical Exam Appears: Non-toxic Skin: Normal Color, Warm Head: Atraumatic, Normacephalic Eye(s): bilateral: Normal Inspection Gastrointestinal/Abdominal: Soft, No Tenderness Back: No CVA Tenderness Pelvic: Other (Deferred) Neurological/Psych: Oriented x3, Normal Speech ED Course And Treatment - Laboratory Results Lab Results: Urine Color Yellow (YELLOW) 02/27/19 22:07 Urine Clarity Hazy (Clear) 02/27/19 22:07 Urine pH 6.0 (5.0-8.0) 02/27/19 22:07 Ur Specific [place] 1.026 (1.003-1.030) 02/27/19 22:07 Urine Protein Negative mg/dL (NEGATIVE) 02/27/19 22:07 Urine Glucose (UA) Normal mg/dL (Normal) 02/27/19 22:07 Urine Ketones Negative mg/dL (NEGATIVE) 02/27/19 22:07 Urine Blood Negative (NEGATIVE) 02/27/19 22:07 Urine Nitrate Negative (NEGATIVE) 02/27/19 22:07 Urine Bilirubin Negative (NEGATIVE) 02/27/19 22:07 Urine Urobilinogen Normal mg/dL (0.2-1.0) 02/27/19 22:07 Ur Leukocyte Esterase 1+ Luiz/uL (Negative) H 02/27/19 22:07 Urine WBC (Auto) 12 /hpf (0-5) H 02/27/19 22:07 Urine RBC (Auto) 3 /hpf (0-3) 02/27/19 22:07 Ur Squamous Epith Cells 2 /hpf (0-5) 02/27/19 22:07 Amorphous Sediment Occ /ul (<OCC) H 02/27/19 22:07 Urine Bacteria Few (<OCC) H 02/27/19 22:07 Urine HCG, Qual Negative (NEGATIVE) 02/27/19 22:07 Urine HCG, Qual Negative (NEGATIVE) 02/27/19 22:07 O2 Sat by Pulse Oximetry: 98 (Room air) Pulse Ox Interpretation: Normal Progress Note: UA was positive for UTI. Patient is resting comfortably in no acute distress, vitals are stable, will discharge home with new Rx and instructions to follow up with PMD. Disposition Counseled Patient/Family Regarding: Diagnosis, Need For Followup, Rx Given - Disposition Referrals: [facility] [Outside] Disposition: HOME/ ROUTINE Disposition Time: 22:31 Condition: STABLE Additional Instructions: Please follow up with PMD Take medications as directed Increase PO fluids Return to ER if worse Prescriptions: Nitrofurantoin Macrocrystals [Macrobid] 1 cap PO BID #14 cap Phenazopyridine HCl [Pyridium] 100 mg PO TID #6 tab Instructions: Urinary Tract Infection, Adult (DC), Kidney Infection (DC) Forms: [email or web address] (Italian) - Clinical Impression Clinical Impression: UTI (urinary tract infection) - PA / MANUSCRIPTS ARCHIVIST / Resident Statement MD/DO has reviewed & agrees with the documentation as recorded. - Scribe Statement The provider has reviewed the documentation as recorded by the Scribe Dada Shay All medical record entries made by the Scribe were at my direction and personally dictated by me. I have reviewed the chart and agree that the record accurately reflects my personal performance of the history, physical exam, medical decision making, and the department course for this patient. I have also personally directed, reviewed, and agree with the discharge instructions and disposition.
[2019-02-27 22:45] VITALS: PULSE 74; RESP 18; TEMP 98
[2019-02-28 01:09] VITALS: O2SAT 98
== END 2019-02-27 22:42 | disposition home or self-care (01) ==
LOC: C.ER 21:21
DX: N39.0 Urinary tract infection, site not specified (principal)